=== PATIENT | female | born 1980 | race African-American/Black ===

== ENCOUNTER 2016-12-22 22:22 | Emergency (ER) | payer OTHER ==
--- NOTE | ~2016-12-22 | CR141 ---
[facility] A Service of [facility] & [facility] RADIOLOGY TEXT RESULTS PATIENT: DANIEL FERRERA LOCATION: [facility] : 76 UNIT #: [id number] AGE: [address]: Marifer Arzate APRN SEX: F ORDER DR: [id number] [facility] [address] [facility]. [place], [place] [address] [id number] MR#: [id number] #: [id number] NAME: DANIEL FERRERA : 1980 SEX: F STUDY DATE/TIME: 12/22/2016 21:54 UNIT: CFTX ROOM: STUDY DESCRIPTION: CR Hand Min 3 Views Lt Attending Physician: Marifer Arzate A.P.R.N. Ordering Physician: [facility] Primary Care Physician: Primary Care Physician No MEDICAL IMAGING REPORT This report is preliminary unless electronic signature is present EXAM Left hand series 12/22/2016 HISTORY 36-year-old female in the ED after hand injury. Hit hand on a ceiling fan earlier this morning. Dorsal metacarpal region pain. TECHNIQUE Three-view left hand series. FINDINGS There is a linear lucency superimposed over the mid shaft of the fifth metacarpal, visible only the AP image. This may represent a nondisplaced spiral fracture. Correlate clinically for point tenderness dislocation. Remainder of the examination is negative. No additional evidence of potential fracture or other osseous abnormality. Possible subtle midshaft fracture of the left fifth metacarpal.. Dictated by... Kirill Forte M.D. THIS IS AN ELECTRONICALLY VERIFIED REPORT Kirill Forte M.D. at 12/23/2016 9:56 PM RGW/kemar TD: 12/23/2016 11:47 JOB #: [id number] MEDICAL IMAGING REPORT [facility] A Service of [facility] & [facility] RADIOLOGY TEXT RESULTS PATIENT: DANIEL FERRERA LOCATION: [facility] : 76 UNIT #: [id number] AGE: [address]: Marifer Arzate APRN SEX: F ORDER DR: JASKARAN
== END 2016-12-22 22:55 | disposition home or self-care (01) ==
LOC: CFTX 22:22
DX: S60.222A Contusion of left hand, initial encounter (principal); I10 Essential (primary) hypertension; W22.8XXA Striking against or struck by other objects, initial encounter; Y92.009 Unspecified place in unspecified non-institutional (private) residence as the place of occurrence of the external cause
CPT/HCPCS: 29125; 73130; 99283